=== PATIENT | male | born 1945 | race Caucasian/White ===

== ENCOUNTER 2020-10-16 14:51 | Inpatient (IN) | payer BC ==
[~2020-10-16] VITALS: Ht 154.9 cm; Wt 109.6 kg
--- NOTE | ~2020-10-16 | EMS ---
[address] [address] EMS Patient Care Report Name: PIA LOZADA Room #: 362-P ADM IN M.R.#: [id number] Admission: 10/16/20 Attend Phys: Mateusz Bah MD Discharge: Date of : 43 Report #: [id number] THIS REPORT FOR: //name// Report Transmitted: 10/17/2020 15:10 EMS Care Summary [place], [place]/[facility] Incident [id number] @ 10/16/2020 14:14 Incident Location [id number] [place] [address] Patient PIA LOZADA Male, 75 Years 1945 Patient Address [id number] [place] [id number] Patient History Asthma,Diabetes,Hypertension (HTN),Diverticulitis,Pneumonia,Chronic Respiratory Failure,Myocardial Infarction (CO),Novel Coronavirus (COVID-19), Patient Allergies No known allergies, Patient Medications Aspirin, Atorvastatin, Humalog, Lantus, Furosemide, Proair, Carvedilol, Losartan, Chief Complaint CHEST PAIN Disposition Transported No Lights/Loiza Dispatch Reason Chest Pain (Non-Traumatic) Transported To [facility] Narrative SCENE: ON ARRIVAL PT FOUND LYING IN BED IN ROOM AT ADDRESS PROVIDED. PT IS [address] [address] EMS Patient Care Report Name: PIA LOZADA Room #: 362-P ADM IN [facility]#: [id number] Admission: 10/16/20 Attend Phys: Matesuz Bah MD Discharge: Date of : 43 Report #: [id number] AWAKE AND ALERT WITH A GCS OF 15. STAFF ON SCENE REPORTS PT IS C/O CHEST PAIN THAT BEGAN APPROXIMATELY 30 MINUTES AGO. PT REPORTS HE WAS LYING IN BED WHEN THE PAIN STARTED. PT IS UNABLE TO DESCRIBE THE PAIN OR RATE THE INTENSITY. PT SLID TO EMS STRETCHER. PT IS ON 4LPM VIA NC AND REMAINED ON THIS THROUGHOUT TRANSPORT. AMBULANCE: PT INITIALLY COULD NOT REMEMBER WHICH HOSPITAL HE WAS SEEN AT FOR HIS CO, NOR CAN HE REMEMBER THE TREATMENT THEY PROVIDED. PT UPPER EXTREMITIES HAVE MULTIPLE AREAS OF BRUISING, AT DIFFERING LEVELS OF HEALING, APPEARING TO BE FROM ATTEMPTEED IV STARTS. EMS UNABLE TO IDENTIFY SUITABLE IV SITE. 12 LEAD OBTAINED SHOWING DEPRESSION IN SOME LEADS, BUT NEGATIVE FOR ST ELEVATION. EMS ADMINISTERED 162MG (2 BABY ASPIRIN), AND PT STATES HE CANNOT STAND THE TASTE, AND REFUSES THE ADDITIONAL TWO ASPIRIN. VITALS MONITORED. NO OTHER CHANGES. Initial Vitals @14:39P: 87,R: 18,BP: 110/66,GCS: 15,SpO2: 94,Revised Trauma: 12, @14:31P: 85,R: 18,Pain: 2/10,GCS: 15, @14:28P: 89,R: 18,BP: 106/68,Pain: 2/10,GCS: 15,Revised Trauma: 12, @14:23P: 84,R: 18,GCS: 15, Assessments @14:23MENTAL:No Abnormalities,SKIN:No Abnormalities,HEENT:Head/Face: No Abnormalities,Eyes: No Abnormalities,Neck/Airway: No Abnormalities,LUNG SOUNDS:General: No Abnormalities,Left Upper: No Abnormalities,Right Upper: No Abnormalities,Left Lower: No Abnormalities,Right Lower: No Abnormalities,ABDOMEN:General: No Abnormalities,Left Upper: No Abnormalities,Right Upper: No Abnormalities,Left Lower: No Abnormalities,Right Lower: No Abnormalities,PELVIS//GI:No Abnormalities,EXTREMITIES:Left Arm: No Abnormalities,Right Arm: No Abnormalities,Left Leg: No Abnormalities,Right Leg: No Abnormalities,PULSE:NEURO:No Abnormalities,@14:44MENTAL:No Abnormalities,SKIN:No Abnormalities,HEENT:Head/Face: No Abnormalities,Eyes: No Abnormalities,Neck/Airway: No Abnormalities,LUNG SOUNDS:General: No Abnormalities,Left Upper: No Abnormalities,Right Upper: No Abnormalities,Left Lower: No Abnormalities,Right Lower: No Abnormalities,ABDOMEN:General: No Abnormalities,Left Upper: No Abnormalities,Right Upper: No Abnormalities,Left Lower: No Abnormalities,Right Lower: No Abnormalities,PELVIS//GI:No Abnormalities,EXTREMITIES:Left Arm: No Abnormalities,Right Arm: No Abnormalities,Left Leg: No Abnormalities,Right Leg: No Abnormalities,PULSE:NEURO:No Abnormalities, Impression Chest Pain / Discomfort Procedures @14:23ALS AssessmentResponse: UnchangedSucceeded@14:3112-Lead ECGResponse: UnchangedSucceeded@14:293-Lead ECGResponse: UnchangedSucceeded@14:34Beryl [address] [address] EMS Patient Care Report Name: PIA LOZADA Room #: 362-P [facility] IN [facility]#: [id number] Admission: 10/16/20 Attend Phys: Mateusz Bah MD Discharge: Date of : 43 Report #: [id number] 0cc (18 ga) Site: Antecubital-LeftResponse: UnchangedFailed@14:38Aspirin - 162 Milligrams (mg) - OralResponse: Unchanged@14:27StretcherResponse: Unchanged@PTAOxygen FlowRate: 4 Device: Nasal Cannula (NC) Response: UnchangedSucceeded Timeline DEPUTY SHERIFF GENERALIST,Oxygen FlowRate: 4 Device: Nasal Cannula (NC) Response: UnchangedSucceeded, 14:12,Call Received 14:12,Dispatch Notified 14:14,Dispatched 14:15,En Route 14:19,On Scene 14:22,At Patient 14:23,BP: / M,PULSE: 84,RR: 18 R,SPO2: Ox,ETCO2: ,BG: ,PAIN: ,GCS: 15, 14:23,ALS Assessment,Response: UnchangedSucceeded, 14:27,Stretcher,Response: Unchanged 14:28,BP: 106/68 M,PULSE: 89,RR: 18 R,SPO2: Ox,ETCO2: ,BG: ,PAIN: 2,GCS: 15, 14:29,3-Lead ECG,Response: UnchangedSucceeded, 14:31,12-Lead ECG,Response: UnchangedSucceeded, 14:31,BP: / M,PULSE: 85,RR: 18 R,SPO2: Ox,ETCO2: ,BG: ,PAIN: 2,GCS: 15, 14:34,Depart Scene 14:34,Saline Lock 0cc 18 ga Site: Antecubital-Left,Response: UnchangedFailed, 14:38,Aspirin - 162 Milligrams (mg) - Oral,Response: Unchanged 14:39,BP: 110/66 M,PULSE: 87,RR: 18 R,SPO2: 94 Ox,ETCO2: ,BG: ,PAIN: ,GCS: 15, 14:45,At Destination 15:06,Call Closed Disclaimer v1.1 Copyright 2020 [employer] This EMS Care Summary contains data elements from the applicable legal record (which may be displayed differently). It is designed to provide pertinent information for the following purposes: continuity of care, clinical quality, and state data reporting. The complete legal record is available to ED staff and administrators of the receiving hospital in [employer] Patient Tracker. All data is provided "as is."
--- NOTE | ~2020-10-16 | HC ---
[facility] [place] [address] CONSULTATION Name: PIA LOZADA Room #: 362-P ADM IN M.R.#: [id number] Admission: 10/16/20 Attend Phys: Mateusz Bah MD Discharge: Date of : 43 Report #: [id number] THIS REPORT FOR: cc: Shawn Truong MD, Srinath MD Al-Absi,Mary Vargas MD ~ REASON FOR CONSULTATION: Elevated creatinine. REASON FOR THE PRESENTATION: Chest pain. HISTORY OF PRESENT ILLNESS: This is a 75-year-old with well-documented chronic kidney disease. He was recently at [facility] and being treated as a non-STEMI. He presented there from [facility]. Creatinine has been in the 1.4-1.6. He was discovered to have COVID pneumonia and was discharged to an LTAC facility. The patient presented with worsening chest pain and was found to have a creatinine of 2.4 on arrival that improved down to 1.6 as of this morning. I was consulted to manage his acute kidney injury. The patient denies any urological symptoms. He carries a diagnosis of many comorbid conditions including and not limited to recent COVID-19, chronic kidney disease with a baseline creatinine of around 1.6. ALLERGIES: None. PAST MEDICAL HISTORY. 1. Coronary artery disease. 2. Diabetes mellitus. 3. Cardiomyopathy. 4. Recent COVID pneumonitis. 5. Hypertension. SOCIAL HISTORY: Denies drug or alcohol abuse. REVIEW OF SYSTEMS: GENERAL: Significant for weakness. CARDIOVASCULAR: Chest pain. PULMONARY: Significant for shortness of breath. GASTROINTESTINAL: No nausea or vomiting. GENITOURINARY: No frequency, no urgency. PHYSICAL EXAMINATION: VITAL SIGNS: Temperature 36.3, blood pressure was marginal at 98/68. HEAD AND NECK: No jugular venous distention. CHEST: No crackles. CARDIOVASCULAR: No rub. ABDOMEN: Soft, nontender. [facility] [address] [place] [address] CONSULTATION Name: PIA LOZADA Room #: 362-P [facility] IN [facility]#: [id number] Admission: 10/16/20 Attend Phys: Mateusz Bha MD Discharge: Date of : 43 Report #: [id number] LOWER EXTREMITIES: There is no evidence of edema. LABORATORY DATA: Reviewed. Sodium is 135, chloride is 106, carbon dioxide is 20, BUN is 86, and creatinine is 1.6. IMPRESSION AND PLAN: 1. Acute kidney injury due to hypotension. 2. Recent COVID pneumonitis. 3. Chronic kidney disease with a baseline creatinine of around 1.6. The patient's creatinine has improved with the values coming down from 2.4 to 1.6, which is around his baseline. Continue with IV fluid. 4. Avoid hypotension. 5. No further renal recommendations. I am available for any questions. I will sign off. By: 0550 0 Mary Gastelum MD /nt
[2020-10-16 14:54] VITALS: BP 114/59
[2020-10-16 15:18] LABS: ABSOLUTE NEUTROPHILS 15.3 thou/uL (1.4-8.2); BASOPHILS 0.5 % (0.0-2.0); EOSINOPHILS 0.5 % (0.0-3.0); HEMATOCRIT 41.4 % (42.0-52.0); HEMOGLOBIN 13.8 gm/dL (14.0-18.0); LYMPHOCYTES 5.1 % (24.0-44.0); MCH 28.8 pg (26.0-34.0); MCHC 33.4 g/dL (28.0-37.0); MCV 86.2 fL (80.0-100.0); MONOCYTES 5.3 % (1.0-8.0); PLATELET COUNT 243 thou/uL (150-400); POLYS 88.6 % (36.0-66.0); RBC 4.81 mil/uL (4.50-6.00); RDW 14.3 % (10.5-14.5); WBC 17.3 thou/uL (4.0-11.0)
[2020-10-16 15:25] LABS: CALCIUM 8.5 mg/dL (8.5-10.1); CREATININE 2.4 mg/dL (0.7-1.3); POTASSIUM 4.2 mmol/L (3.5-5.1)
[2020-10-16 15:35] LABS: ALBUMIN 2.7 g/dL (3.4-5.0); TOTAL BILIRUBIN 1.7 mg/dL (0.2-1.0); TOTAL PROTEIN 7.3 g/dL (6.4-8.2); TROPONIN-I 0.1 ng/mL (<0.06)
--- NOTE | 2020-10-16 16:04 | EKG ---
[address] [employer] [place] [address] ELECTROCARDIOGRAM REPORT Name: PIA LOZADA Room #: REG [facility]#: [id number] Admission: 10/16/20 Attend Phys: Discharge: Date of : 41 Report #: [id number] [facility] ED Test Date: 2020-10-16 Test Time: 14:52:26 Pat Name: PIA LOZADA Department: Room: Gender: M [employer]: : 1945 Requested By: Toby Mooney Order Number: [id number] MD: Bigg Shine Measurements Intervals [place] Rate: 86 P: 50 MS: 219 QRS: 63 QRSD: 107 T: 63 QT: 376 QTc: 450 Interpretive Statements Sinus rhythm Borderline prolonged MS interval Consider left atrial enlargement Inferior infarct, old No previous ECG available for comparison Electronically Signed On 10-16-2020 16:04:19 CDT by Bigg Shine [email or web address] <ELECTRONICALLY SIGNED> By: Bigg Shine MD, [facility] 10/16/20 1604 1452 1452 Bigg Shine MD, FACC /EPI
[2020-10-16 17:00] LABS: APTT 27.3 Seconds (24.5-32.8); PROTIME 10.9 Seconds (10.5-12.1)
[2020-10-16 18:57] VITALS: BP 149/107
[2020-10-16 20:28] VITALS: BP 111/76
[2020-10-16 20:59] VITALS: BP 132/69
[2020-10-16 21:14] VITALS: BP 132/69
[2020-10-17] VITALS (7 sets, daily range): BP systolic 100–130; BP diastolic 59–75
[2020-10-17 00:54] LABS: ABSOLUTE NEUTROPHILS 15.6 thou/uL (1.4-8.2); BASOPHILS 0.2 % (0.0-2.0); EOSINOPHILS 0.5 % (0.0-3.0); HEMATOCRIT 39.2 % (42.0-52.0); LYMPHOCYTES 3.9 % (24.0-44.0); MCH 28.9 pg (26.0-34.0); MCHC 33.2 g/dL (28.0-37.0); MCV 87.1 fL (80.0-100.0); MONOCYTES 3.8 % (1.0-8.0); PLATELET COUNT 212 thou/uL (150-400); POLYS 91.6 % (36.0-66.0); RDW 14.7 % (10.5-14.5)
--- NOTE | 2020-10-17 01:14 | NUR ---
ADMIT FROM ED. PT ALERT TO SELF AND SITUATION. PT STATED HE USUALLY GOES TO [facility] THAT HE WAS HERE FOR AFIBB. PALE SKIN TONE, COARSE LUNGS O2 PER NC 4L. BLE EDEMA, PROTRUDING ABD. PT RESTLESS AND IMPULSIVE IN BED. BED ALARM ON. INCONTINENT OF URINE. HEPARIN DRIP STARTED IN ED. IVF INTACT. PT PROVIDED SNACK. PT TALKED WITH HIS DAUGHTER. HISTORY OBTAINED FROM RECORDS FROM [facility]. PRESENTING PER ED REPORT COVID POSITIVE (09/15) AND CHEST PAIN WITH HISTORY OF RECENT VA. NO C/O CHEST PAIN.
[2020-10-17 01:22] LABS: CALCIUM 7.9 mg/dL (8.5-10.1); CREATININE 1.9 mg/dL (0.7-1.3); POTASSIUM 4.2 mmol/L (3.5-5.1); TROPONIN-I 0.12 ng/mL (<0.06)
[2020-10-17] MEDS ORDERED: CHILDREN'S ASPI81 M1 PO (01:45)
[2020-10-17] MEDS ORDERED: LIPITOR80 MG PO (01:45)
[2020-10-17] MEDS ORDERED: BUDESONIDE-FO10.2 G1 INH (01:46)
[2020-10-17] MEDS ORDERED: CARVEDILOL12.5 MG PO (01:46)
[2020-10-17] MEDS ORDERED: FUROSEMIDE 40 M40 MG PO (01:47)
[2020-10-17] MEDS ORDERED: LANTUS SUBQ (01:47)
[2020-10-17] MEDS ORDERED: COZAAR100 MG PO (01:48)
[2020-10-17] MEDS ORDERED: MIRALAX119 GM PO (01:49)
[2020-10-17] MEDS ORDERED: PROAIR HFA8.5 GM INH (01:51)
--- NOTE | 2020-10-17 02:21 | NUR ---
PT VERBALIZED BEING BORED AND NOT ABLE TO SLEEP. PT STATED HE NORMALLY BREATHS OUT OF HIS MOUTH AND MAKES OBSERVED NOISES. PT ENCOURAGED TO BREATH IN THROUGH HIS NOSE AND OUT OF HIS MOUTH. PROVIDER NOTIFIED OF BEHAVIORS. PRNS ORDERED. ONCE PT WAS TOLD HE WAS RECEIVING MEDICATION FOR SLEEP AND ANXIETY, PT RELAXED IN BED STOPPED BREATHING AND GRUNTING THROUGH HIS MOUTH AND STARTED TO WATCH TV.
--- NOTE | 2020-10-17 03:18 | NUR ---
INCREASE IN RR, ACCESSORY MUSCLE USE, INCREASE IN RESTLESSNESS. PT NOT ABLE TO SETTLE RR. CATALOGUE COMPILER AND PROVIDER CALLED TO ASSIST AND ASSESS PT. NEW ORDERS OBTAINED.
[2020-10-17 03:37] LABS: BE(vivo) -4.6 mmol/L (-2 to +3); HCO3 16.5 mmol/L (22.0-26.0); PO2 83.6 mmHg (80.0-100.0); pH 7.498 (7.360-7.450); sO2 97.2 % (92.0-98.0)
[2020-10-17 03:38] LABS: PCO2 21.7 mmHg (35.0-45.0)
--- NOTE | 2020-10-17 04:36 | NUR ---
PT HAD LARGE DARK BLACK STOOL LIQUID. SAMPLE OBTAINED. PROVIDER UPDATED.
[2020-10-17 09:15] LABS: CHOLESTEROL 104 mg/dL (<200); HDL CHOLESTEROL 36 mg/dL (>40); LDL CHOLESTEROL 49 mg/dL (<100); TC:HDL 2.9 Ratio (Not establshd); TRIGLYCERIDE 97 mg/dL (<150); VLDL 19 mg/dL (<40)
--- NOTE | 2020-10-17 10:37 | 2DMMODE ---
[facility] [place] [address] 2 D/M-MODE ECHOCARDIOGRAM Name: PIA LOZADA Room #: 362-P ADM IN M.R.#: [id number] Admission: 10/16/20 Attend Phys: Mateusz Bah MD Discharge: Date of : 43 Report #: [id number] THIS REPORT FOR: cc: Shawn Truong MD, Srinath MD Park, Jin S. MD ~ APPROVED REPORT Study performed: 10/17/2020 09:29:28 EXAM: Limited 2D, Doppler, and color-flow Echocardiogram Patient Location: Bedside Room #: 362 Status: routine BSA: 2.26 HR: 114 bpm BP: 107/59 mmHg Rhythm: Tachycardia Other Information Study Quality: Poor/limited window availability Technically limited study due to patient in distress, unable to position. Sitting up in bed. Indications Chest pain/NSTEMI. Patient is COVID 19 + Hx: OR, CAD, cardiomyopathy, HTN, HLP, DM. 2D Dimensions LVOT Diam: 22.26 (18-24mm) Aortic Valve AoV Peak Govind.: 1.83 m/s AO Peak Gr.: 13.42 mmHg LVOT Max P.29 mmHg LVOT Max V: 0.91 m/s BRIAN Vmax: 1.93 cm2 Tricuspid Valve TR Peak Govind.: 2.01 m/s TR Peak Gr.: 16.15 mmHg Left Ventricle The left ventricle is normal size. Technically difficult study. Grossly normal LV function, unable to rule out segmental wall motion [facility] [address] [place] [address] 2 D/M-MODE ECHOCARDIOGRAM Name: PIA LOZADA Room #: 362-P ADM IN .R.#: [id number] Admission: 10/16/20 Attend Phys: Mateusz Bah MD Discharge: Date of : 43 Report #: [id number] abnormalities. LVEF is 55-60%. This study is not technically sufficient to allow evaluation of the LV diastolic function due to tachycardia. Right Ventricle The right ventricle is normal size. The right ventricular systolic function is normal. Atria Both atria appear normal in size. Aortic Valve The aortic valve is not well visualized. Leaflets appear calcified. No aortic regurgitation is present. There is no aortic valvular stenosis. Mitral Valve The mitral valve is normal in structure. Mild mitral annular calcification. There is no mitral valve regurgitation noted. No evidence of mitral valve stenosis. Tricuspid Valve The tricuspid valve is normal in structure. Trace tricuspid regurgitation. Estimated PAP is 16mmHg plus the RAP. Pulmonic Valve Pulmonic valve is not well visualized. Great Vessels Ascending aorta is not well visualized. IVC is not well visualized. Pericardium There is no pericardial effusion. <Conclusion> The left ventricle is normal size. Technically difficult study. Grossly normal LV function, unable to rule out segmental wall motion abnormalities. The right ventricle is normal size. The aortic valve is not well visualized. Leaflets appear calcified. [facility] [address] [place] [address] 2 D/M-MODE ECHOCARDIOGRAM Name: PIA LOZADA Room #: 362-P ADM IN .R.#: [id number] Admission: 10/16/20 Attend Phys: Mateusz Bah MD Discharge: Date of : 43 Report #: [id number] There is no mitral valve regurgitation noted. Trace tricuspid regurgitation. <ELECTRONICALLY SIGNED> By: German Mccarty MD 10/17/206 35 35 German Mccarty MD /INF
--- NOTE | 2020-10-17 13:55 | NUR ---
INITIAL ASSESSMENT: Received consult. SADIE reviewed chart and spoke with nursing and attending physician. Pt was admitted from [facility] due to Chest pain. Pt placed in Enhanced Isolation due to COVID. Pt had positive test on 10/16. Per chart, pt had first positive COVID test on 10/05 at [facility]. Pt was transferred to [facility] and then discharged to [facility] SNF on 10/13. Pt is afebrile and on 4L of O2. ID consulted. Pt started on IV abx. Cardiology and Nephrology also consulted. Pt to have echo and possible cardiac cath per ID clearance. SADIE placed call to pt's room. No answer. SADIE left voice message for pt's dtrPat. Requested call back to obtain info for assessment and discuss discharge plan. SADIE spoke with Vera at [facility], who states pt is currently in their skilled unit, and will need a new insurance auth for pt to return as skilled. Therapy evals have been ordered. SW to fax info to [facility] for review once pt/family confirm discharge plan. SADIE is following to assist as needed with discharge planning.
[2020-10-17 14:05] LABS: URINE BILIRUBIN NEGATIVE (Negative); URINE BLOOD 1+ (Negative); URINE CLARITY CLEAR; URINE COLOR YELLOW; URINE GLUCOSE-RANDOM* NEGATIVE (Negative); URINE KETONES NEGATIVE (Negative); URINE LEUKOCYTES-REFLEX NEGATIVE (Negative); URINE NITRITE-REFLEX NEGATIVE (Negative); URINE PROTEIN (DIPSTICK) NEGATIVE (Negative); URINE UROBILINOGEN 0.2 E.U./dl (0.2-1.0)
[2020-10-17 14:18] LABS: BACTERIA-REFLEX 1-9 Few /HPF (None Seen); CASTS None Seen /LPF (None Seen); CRYSTALS None Seen /LPF (None Seen); SQUAMOUS None Seen /LPF (0-3); URINE RBC 3-10 Few /HPF (NONE SEEN); URINE WBC-REFLEX None Seen /HPF (0-5)
--- NOTE | 2020-10-17 16:36 | NUR ---
RN ASSUMED PT'S CARE AT 0700AM , PT IS A&OX2 ( PERSON AND TIME), PT IS CONFUSED AT TIME, PT CAN FOLLOW COMMANDS, PT IS ON O2 4L/MIN/NC.PT'S VS AND O2SAT ARE STABLE, PT HAS STAERTED IV ABX AND TREATED COVID MEDICATIOMS, PT HAS STRATED IV HEPARIN DRIP , PT'S HEPARIN IS RUNNING AT 10UNITS/KG/HR PER PROTOCOL BY THIS TIME, PT WILL HAVE LAB PTT AT 2100PM, RN HAS CALLED HOSPITAL DR TO REPORT POSITIVE OCCULT BLOOD IN STOOL, PT'S HGB ARE STABLE BY THIS TIME, WE WILL KEEP EYES ON PT, PT WILL HAVE CBC /HGB TOMORROW.
[2020-10-18] VITALS (12 sets, daily range): BP systolic 90–115; BP diastolic 48–79
[2020-10-18 00:06] LABS: GLYCOHEMOGLOBIN (HGB A1C) 7.8 % (4.8-5.6)
[2020-10-18 03:19] LABS: ABSOLUTE NEUTROPHILS 11.2 thou/uL (1.4-8.2); BASOPHILS 0.1 % (0.0-2.0); HEMATOCRIT 28.4 % (42.0-52.0); LYMPHOCYTES 5.7 % (24.0-44.0); MCH 28.9 pg (26.0-34.0); MCHC 33.7 g/dL (28.0-37.0); MONOCYTES 2.2 % (1.0-8.0); PLATELET COUNT 182 thou/uL (150-400); RDW 14.7 % (10.5-14.5); WBC 12.2 thou/uL (4.0-11.0)
[2020-10-18 03:29] LABS: HEMOGLOBIN 9.6 gm/dL (14.0-18.0)
[2020-10-18 03:39] LABS: ALBUMIN 1.8 g/dL (3.4-5.0); CALCIUM 7.1 mg/dL (8.5-10.1); CREATININE 1.6 mg/dL (0.7-1.3); PHOSPHORUS 2.9 mg/dL (2.5-4.9); POTASSIUM 4.2 mmol/L (3.5-5.1)
--- NOTE | 2020-10-18 06:31 | NUR ---
PT IS ALERT AND ASKING WHEN HE IS GOING TO LEAVE. VSS OVERNIGHT. ULTRASOUND COMPLETED WITHOUT ANY DVT'S. PHYSICIAN NOTE STATED THAT IF ULTRASOUND NEGATIVE, A CTA CAN BE DONE IF KIDNEY FUNCTION WILL ALLOW. PT BEDREST BUT CAN VOID USING THE URINAL. FOLLOWING POC WITH IVF. HgB TRENDING LOWER.
[2020-10-18 09:47] LABS: HEMATOCRIT 27.7 % (42.0-52.0); HEMOGLOBIN 9.1 gm/dL (14.0-18.0)
--- NOTE | 2020-10-18 10:58 | NUR ---
ASSUMED CARE OF PT THIS AM. PT IS A&O X4. ON 4L NC, NO DISTRESS NOTED. DENIES ANY CHEST PAIN. PT WILL BE GOING FOR CARDIAC CATH TODAY, HEPARIN DRIP STOPPED VIA DR. PT REFUSED ALL VIT C & 1 PILL OF CHOLECALCIFEROL, STATED "TOO MANY PILLS". PT EDUCATED ABOUT NEED TO TAKE THEM. USES URINAL. FALL PRECAUTIONS IN PLACE.
--- NOTE | 2020-10-18 12:00 | HC ---
[facility] [place] [address] CONSULTATION Name: PIA LOZADA Room #: 362-P ADM IN M.R.#: [id number] Admission: 10/16/20 Attend Phys: Mateusz Bah MD Discharge: Date of : 43 Report #: [id number] THIS REPORT FOR: cc: Shawn Truong MD, Srinath MD Barry,Fermín Giraldo MD ~ DATE OF SERVICE: 10/17/2020 INFECTIOUS DISEASE CONSULTATION ATTENDING PHYSICIAN: Dr. Bah. REASON FOR EVALUATION: COVID-19 infection, complicated by pneumonitis, respiratory failure. HISTORY OF PRESENT ILLNESS: Chart reviewed. The patient examined. This is a 75-year-old gentleman with known history of diabetes mellitus complicated by vasculopathy, previous diagnosis of acute myocardial infarction as well as COVID-19 infection, had been hospitalized for upwards of a week, underwent combination therapy with antivirals corticosteroids, apparently was discharged, he believes on supplemental oxygen and subsequently developed chest pain, was admitted to [facility], currently requiring supplemental oxygen at 4 liters per nasal cannula. Initial white count was elevated at 17.3, mildly elevated D-dimer, creatinine 2.4. EKG suggests inferior infarct, felt not to be acute. Chest x-ray, no evidence of significant infiltrates, mild elevation of lactic acid of 2.1. Coronavirus testing was still positive. Review of the records apparently was diagnosed on 09/27. Troponin slightly elevated at 0.1. ABGs: pH 7.498, pCO2 of 21.7, pO2 of 83.6 on 6 liters. Blood cultures sterile thus far. Echo showed grossly normal LV function. He is scheduled to undergo cardiac catheterization when cleared. ALLERGIES: None known. CURRENT MEDICATIONS: Include metoprolol, atorvastatin, insulin glargine, aspirin, cholecalciferol, thiamine, zinc sulfate, ascorbic acid, pantoprazole, budesonide, melatonin, nitroglycerin as needed, heparin. PAST MEDICAL HISTORY: As described above, diabetes mellitus type 2, complicated by vasculopathy, has recent acute myocardial infarction, atrial fibrillation, underlying COPD, anxiety, depression, some dementia. SOCIAL HISTORY: Former smoker, occasional ethanol. No illicit drug use. FAMILY HISTORY: Noncontributory. REVIEW OF SYSTEMS: Otherwise, somewhat limited due to his mild encephalopathy. [address] [address] CONSULTATION Name: PIA LOZADA Room #: [address] [place] [address] IN .R.#: [id number] Admission: 10/16/20 Attend Phys: Mateusz Bah MD Discharge: Date of : 43 Report #: [id number] PHYSICAL EXAMINATION: GENERAL: He is somewhat lethargic, slow to respond moderate distress, appears somewhat chronically ill and undernourished. VITAL SIGNS: Temperature 99, pulse 101, respirations 24, blood pressure 102/61. SKIN: Warm, dry, no rashes. HEENT: Normocephalic. Extraocular muscles intact. Nasal cannula in place with 4 liters. NECK: Supple. LUNGS: ____ scattered coarse breath sounds. HEART: Irregular, I do not appreciate any murmur. ABDOMEN: Mildly distended, somewhat firm, nontender. EXTREMITIES: There are no peritoneal signs. GENITOURINARY AND RECTAL: Deferred. LABORATORY DATA: Echo as described above. Blood cultures sterile thus far. Chest x-ray from this morning showed mild cardiomegaly with slight hyperinflation and basilar scarring, no acute infiltrate. Most recent ABG: pH 7.498, pCO2 of 21.7, pO2 of 83.6 on 6 liters. Electrolytes: Sodium 134, potassium 4.2, chloride 102, bicarbonate 24, anion gap of 8, BUN and creatinine 87 and 1.9. Estimated GFR of 35. CBC: White count this morning 17.0, H and H 13.0 and 39.2, platelets of 212. Lactic acid 1.2. V/Q scan showed indeterminate multifocal segmental perfusion defects. TSH is 0.716. Positive coronavirus ____ testing. ASSESSMENT AND PLAN: COVID-19 infection diagnosed with recent past, complicated by pneumonitis and respiratory failure. He does have underlying chronic obstructive pulmonary disease and recent acute cardiac event, all which can contribute to his breathing difficulties, chest pain. It is not clear that he has a focal site of pyogenic infection and difficult to interpret airspace disease with underlying chronic obstructive pulmonary disease, this reason we will continue empiric therapy. We will check urinalysis as well. Follow up on the blood cultures, other incentive spirometry. Continue to monitor expectantly. This is reasonable to proceed with cardiac catheterization, it has been 21 days since his diagnosis. The period of quarantine should have been adequate. <ELECTRONICALLY SIGNED> By: Fermín Hale MD 10/18/20 1200 1118 57 Fermín Hale MD /nt
--- NOTE | 2020-10-18 13:28 | NUR ---
PT TAKEN DOWN FOR CATH.
--- NOTE | 2020-10-18 13:51 | NUR ---
SADIE reviewed chart and spoke with nursing and attending physician. Pt remains in Enhanced Isolation due to COVID. Pt is afebrile and on 4L of O2. Pt is on IV abx and IV steroids. Pt currently off the unit having cardiac cath. SADIE received call back from pt's dtr, Pat. Introduced role of SW to Pat. Pat states that she was unaware that pt was moved from [facility] to [facility]. Pt's dtr states that prior to admission to the hospital, he was completely independent. Pt normally lives at home alone and is independent with ADLs. No use of DME. Pt was working part-time at [employer] prior to the COVID pandemic. [employer] required employees to wear a mask. Pt refused to wear a mask and stopped going to work. Pt's dtr is unsure if he has a PCP, as she is not really involved in his life. Pt has isolated himself from his family and friends. Pt's dtr is agreeable with being updated and assisting with pt's care as needed. Pat does live in [place]. SADIE faxed clinical/therapy updates to [facility] for review. SADIE updated [facility] post-acute liaison. Will need insurance auth for pt to return to [facility] as skilled. SADIE is following to assist as needed with discharge planning.
--- NOTE | 2020-10-18 15:47 | CATHLAB ---
[facility] [place] [address] INVASIVE PROCEDURE REPORT Name: PIA LOZADA Parvin Room #: 362-P ADM IN M.R.#: [id number] Admission: 10/16/20 Attend Phys: Mateusz Bah MD Discharge: Date of : 41 Report #: [id number] THIS REPORT FOR: cc: Shawn Truong MD, Srinath MD Park, Jin S. MD ~ APPROVED REPORT Study performed: 10/18/2020 13:15:59 Patient Details Patient Status: In-Patient Room #: 362 The patient is a 75 year-old male Event Personnel Germna Mccarty Product Delivery Specialist, Abraham Quinn RN RN, Joanie Domínguez RTR, DRY TRANSFER WORKER Monitor, Juany Chavarria RTR Scrub Procedures Performed Art Access - R femoral artery* Left Heart Cath w/or w/o Coronaries [id number] [facility] [address] Initial Mod Sed Same Phys/QHP Gr5y 093325 Hemostasis with Manual pressure 82494 Mod Sed Same Phys/QHP Ea 544693 Indication Non-STEMI , Dyspnea, Chest pain Risk Factors Chronic Lung DiseaseHypercholesterolemia, Coronary Artery DiseaseHypertension, Diabetes Previous Procedures/Diagnoses Previous NH Procedure Narrative The Right Groin^ was infiltrated with 1% Lidocaine subcutaneous anesthesia. A PINNACLE 4FR Sheath #[id number] sheath was inserted into the RFA^. Coronary angiography was performed using coronary diagnostic catheters. The right coronary system was accessed and visualized with a JR4 catheter. The left coronary system was accessed and visualized with a JL4 catheter. The left ventricle was accessed and visualized with a JR4 catheter. Left ventricular/Aortic Valve gradient assessed via catheter pullback. Hemostasis was obtained with manual pressure following sheath removal without any complications. [facility] [address] [place] [address] INVASIVE PROCEDURE REPORT Name: PIA LOZADA Room #: 362-P [facility] [place] [facility]#: [id number] Admission: 10/16/20 Attend Phys: Mateusz Bah MD Discharge: Date of : 41 Report #: [id number] The patient tolerated the procedure well and there were no complications associated with the procedure. There was no hematoma. Intraoperative Conscious Sedation Sedation start time: 14:27 Case end Time: 14:57 Fentanyl 50 mcg Versed 1 mg Fluoro Time: 2.47 minutes Dose: DAP 4611.80 cGycm2 620 mGy Contrast Type and Amount: Visipaque 65 ml Coronary Angiography The patient's coronary anatomy is right dominant. Diagnostic Cath Left Main Left main artery is a large-caliber vessel, with mild disease distally. LAD The LAD is a moderate-sized caliber vessel, traversing the anterior wall and wraps around the apex. There is mild calcification and mild plaquing in the proximal and mid segments. Diagonal 1 This is a moderate-sized caliber vessel with a early takeoff from the LAD. This vessel divides into 2 branches at its midpoint. This vessel is patent with no flow-limiting lesions. Diagonal 2 This is a small to moderate-sized caliber vessel, with mild disease proximally. 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 There appears to be faint collaterals to the distal segments. Right Coronary The RCA is a dominant vessel with a total occlusion in the midsegment. The distal branches are adequately filled via collateral circulation from the left coronary artery. Left Ventriculography Left Ventriculography was not performed. Ejection Fraction was 50% based off patient's Echocardiogram. An LVEDP was measured and there is no gradient across the outflow tract. Hemodynamics The aortic pressure is 105/59 mmHg with a mean of 78 mmHg. The left ventricular pressure is 130/4 mmHg with a mean of mmHg. The left ventricular end diastolic pressure is 10 mmHg. Conclusion [facility] [address] [place] [address] INVASIVE PROCEDURE REPORT Name: PIA LOZADA Room #: [address] [place] [address] [facility]#: [id number] Admission: 10/16/20 Attend Phys: Mateusz Bah MD Discharge: Date of : 41 Report #: [id number] 1. The LAD and first diagonal artery are patent vessels with mild disease. 2. 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 The distal branches are adequately filled via collateral circulation. 3. 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 There are faint collaterals to the distal branches. 4. Borderline lownormal LV systolic function. 5. Recommend guideline directed medical therapy. <ELECTRONICALLY SIGNED> By: German Mccarty MD 10/18/20 1547 1547 1547 German Mccarty MD /INF
[2020-10-19 02:11] LABS: HEMATOCRIT 25.8 % (42.0-52.0); HEMOGLOBIN 8.5 gm/dL (14.0-18.0); MCH 28.8 pg (26.0-34.0); MCHC 33.1 g/dL (28.0-37.0); MCV 86.9 fL (80.0-100.0); RBC 2.97 mil/uL (4.50-6.00); RDW 14.6 % (10.5-14.5); WBC 17.3 thou/uL (4.0-11.0)
[2020-10-19 02:35] VITALS: BP 90/61
[2020-10-19 03:12] LABS: CALCIUM 6.9 mg/dL (8.5-10.1); CREATININE 1.4 mg/dL (0.7-1.3); POTASSIUM 4.6 mmol/L (3.5-5.1)
[2020-10-19 03:28] VITALS: BP 104/80
--- NOTE | 2020-10-19 03:53 | NUR ---
episode od chest pain at 0340. blood pressure 127/70, pulse 87, o2 sat 98 on 4 liters, chest pain a 8/10. then within 10 minutes pain decreased to a 3/10. continues to relax and feels slightly better. he thinks it was the ice cream
--- NOTE | 2020-10-19 07:54 | NUR ---
PT HAD COMPLAINTS OF CHEST PAIN X2. STAT EKG SHOWS PVC AND SR. PT DID NOT WANT ANY NITRO, BUT FINALLY ACCEPTED ONE DOSE. PT VOIDS VIA URINAL. CATH SITE C/D/I. FOLLOW POC WITH IVF AND IVPB. ISOLATION AND FALL PRECAUTIONS IN PLACE.
--- NOTE | 2020-10-19 08:05 | EKG ---
[place] [id number] [address] [facility] [place] [address] ELECTROCARDIOGRAM REPORT Name: PIA LOZADA Room #: 362-P ADM IN M.R.#: [id number] Admission: 10/16/20 Attend Phys: Mateusz Bah MD Discharge: Date of : 41 Report #: [id number] [facility] Test Date: 2020-10-19 Test Time: 07:21:35 Pat Name: PIA LOZADA Department: Room: 362 P Gender: M Larriman Helper: UNKNOWN : 1945 Requested By: German Mccarty Order Number: [id number] MD: Jeffrey Durbin Measurements Intervals [place] Rate: 75 P: 2 VT: 191 QRS: -3 QRSD: 106 T: 65 QT: 421 QTc: 471 Interpretive Statements Sinus rhythm Ventricular premature complex Inferior infarct, old Compared to ECG 10/16/2020 14:52:26 Ventricular premature complex(es) now present Electronically Signed On 10-19-2020 8:04:48 CDT by Jeffrey Durbin [email or web address] <ELECTRONICALLY SIGNED> By: Jeffrey Durbin MD, [facility] 10/19/20803 0 0 Jeffrey Durbin MD, [facility] /EPI
--- NOTE | 2020-10-19 10:27 | NUR ---
ASSUMED CARE OF PT THIS AM. PT IS A&O X 4. REPORTED CP THIS MORNING 08/24 "ACHING", REFER TO NIGHT NURSE NOTE. PT CURRENTLY DENIES ANY CHEST PAIN AND IS RESTING COMFORTABLY. THIS NURSE ASSISTED PT W/ SHOWER CAP AND NAIL CLEANING. CATH SITE IS CLEAN, DRY, AND INTACT. HGB CONTINUES TO DROP, PHYSICIAN AWARE. ENHANCED PRECAUTIONS IN PLACE. WILL CONTINUE TO MONITOR.
[2020-10-19 11:39] VITALS: BP 129/109; BP 130/62
--- NOTE | 2020-10-19 13:39 | NUR ---
SADIE reviewed chart and spoke with nursing and attending physician. Pt remains in Enhanced Isolation due to COVID. Pt had cardiac cath yesterday and is progressing towards goals for discharge. Pt is afebrile and on 4L of O2. PT is on IV abx and IV steroids. SADIE faxed updated clinical/therapy notes to [facility] for review. SADIE has had return call from [facility] post-acute liaison, Tamara, or the facility. SADIE contacted Alcira, another liaison, who requested info to be faxed to an alternate number. SADIE faxed info for review. Insurance auth might be needed for pt to return using his skilled benefit. Some [employer] policies have a waiver at this time due to COVID. SADIE is following to assist as needed with discharge planning.
[2020-10-19 15:38] VITALS: BP 109/52
[2020-10-19 16:50] LABS: HEMATOCRIT 28.1 % (42.0-52.0); HEMOGLOBIN 8.9 gm/dL (14.0-18.0); MCH 28.8 pg (26.0-34.0); MCHC 31.8 g/dL (28.0-37.0); MCV 90.5 fL (80.0-100.0); RBC 3.11 mil/uL (4.50-6.00); RDW 15.1 % (10.5-14.5); WBC 19.1 thou/uL (4.0-11.0)
[2020-10-19 21:16] VITALS: BP 115/61
[2020-10-20 05:34] VITALS: BP 105/54
--- NOTE | 2020-10-20 07:52 | NUR ---
VSS OVERNIGHT. PT UP IN CHAIR UNTIL 2300. PT IS CONFUSED AND STATES NO ONE IS CHECKING ON HIM WHILE HOURLY ROUNDING OCCURRING. PT VOIDS VIA URINAL. CHARGED PT ANDRIOD PHONE FOR HIM TO USE TO INCREASE HIS HAPPINESS. FOLLOWING POC WITH IVF/IVPB.
[2020-10-20 07:56] VITALS: BP 125/76
[2020-10-20 09:41] LABS: HEMATOCRIT 24.9 % (42.0-52.0); HEMOGLOBIN 8.2 gm/dL (14.0-18.0)
--- NOTE | 2020-10-20 11:07 | NUR ---
SADIE reviewed chart and spoke with nursing and attending physician. Pt remains in Enhances Isolation due to COVID. Pt is afebrile and on 3L of O2. Pt is on IV abx and IV steroids. Awaiting lab results at this time. Pt may be ready for discharge to SNF. SADIE contacted Lynnette at [facility] to follow up on referral. [facility] does not have any beds available. SADIE spoke with pt via phone to provide update. Pt is wanting to get to a facility closer to [place], [place], where he lives. SADIE discussed options in [place]. Pt is agreeable with referrals to [facility] and [facility]. SADIE spoke with Heather at [facility], who states they do accept COVID positive and recovered pts. SADIE faxed referral to [facility]. Insurance to be verified. SADIE updated Alcira with [facility], who states she will check with [facility]. SADIE updated pt via phone and attending physician. Chart copy requested. SADIE is following to assist as needed with discharge planning.
[2020-10-20 12:14] VITALS: BP 121/74
[2020-10-20 14:29] LABS: HEMATOCRIT 25.1 % (42.0-52.0); HEMOGLOBIN 8.1 gm/dL (14.0-18.0)
[2020-10-20] MEDS ORDERED: VITAMIN D325 MC2 PO (15:19)
[2020-10-20] MEDS ORDERED: VITAMIN B-1100 M2 PO (15:19)
[2020-10-20] MEDS ORDERED: ACEROLA C500 MG PO (15:19)
[2020-10-20] MEDS ORDERED: NITROGLYCERIN0.4 MG SUBLING (15:19)
[2020-10-20] MEDS ORDERED: METOPROLOL SUCC25 M1 PO (15:19)
[2020-10-20] MEDS ORDERED: IMDUR 30 MG TAB30 M1 PO (15:19)
[2020-10-20] MEDS ORDERED: ZINC SULFATE50 MG PO (15:19)
[2020-10-20] MEDS ORDERED: MELATONIN5 M1 PO (15:19)
[2020-10-20] MEDS ORDERED: PROTONIX 20 MG20 M1 PO (15:19)
[2020-10-20] MEDS ORDERED: CEFDINIR300 MG PO (15:31)
[2020-10-20] MEDS ORDERED: ASA81BEC PO (15:31)
[2020-10-20] MEDS ORDERED: PREDNISONE 20 M20 MG PO (15:37)
[2020-10-20 15:52] VITALS: BP 110/59
[2020-10-20] MEDS ORDERED: ELIQUIS2.5 MG PO (18:00)
--- NOTE | 2020-10-20 18:15 | NUR ---
RN ASSUMED PT'S CARE AT 0700-1800PM, PT IS A&OX4, PT IS ON O2 3L/MIN/NC, PT'S VS ARE STABLE, PT DENIES PAIN AND N/V, PT GETS UP TO CHAIR WITH ASSIST, RN RECEIVED ORDER TO DC PT TO SNF, RN HAS GIVING REPORT TO SNF, TRANSPORTATION REAL ESTATE SALESPERSON PT AT 1800PM, PT IS HAPPY WITH [facility] AT THIS HOSPITAL. PT HAS A GOOD DINNER .
--- NOTE | 2020-10-20 19:47 | NUR ---
RN HAS CALLED SNF CHARGE NURSE AND RN HAS FAXED DC NEW MEDICATION ORDER , SNF HAS RECEIVED NEW ORDER .
== END 2020-10-20 18:32 | DRG 280 ==
LOC: ER 14:51 → 3W 18:17 → EROBS 18:17 → 3W 20:41
PROVIDERS: Emergency Medicine; Hospitalist; Internal Medicine Cardiovascular Disease; Nurse Practitioner; Nurse Practitioner Family; Specialist; ADMIT Hospitalist; ATTEND Hospitalist
PROC: B215YZZ Fluoroscopy of Left Heart using Other Contrast (ICD-10-PCS; principal; 2020-10-18)
PROC: 4A023N7 Measurement of Cardiac Sampling and Pressure, Left Heart, Percutaneous Approach (ICD-10-PCS; principal; 2020-10-18)
PROC: B211YZZ Fluoroscopy of Multiple Coronary Arteries using Other Contrast (ICD-10-PCS; principal; 2020-10-18)
DX: I21.4 Non-ST elevation (NSTEMI) myocardial infarction (principal); J96.21 Acute and chronic respiratory failure with hypoxia; E43 Unspecified severe protein-calorie malnutrition; J96.01 Acute respiratory failure with hypoxia; U07.1 COVID-19; J12.82 Pneumonia due to coronavirus disease 2019; N17.9 Acute kidney failure, unspecified; I42.9 Cardiomyopathy, unspecified; G72.81 Critical illness myopathy; Z68.42 Body mass index [BMI] 45.0-49.9, adult; J44.9 Chronic obstructive pulmonary disease, unspecified; I25.10 Atherosclerotic heart disease of native coronary artery without angina pectoris; N18.9 Chronic kidney disease, unspecified; E86.0 Dehydration; R53.81 Other malaise; D64.9 Anemia, unspecified; F41.9 Anxiety disorder, unspecified; E11.22 Type 2 diabetes mellitus with diabetic chronic kidney disease; F03.90 Unspecified dementia, unspecified severity, without behavioral disturbance, psychotic disturbance, mood disturbance, and anxiety; I12.9 Hypertensive chronic kidney disease with stage 1 through stage 4 chronic kidney disease, or unspecified chronic kidney disease; I95.9 Hypotension, unspecified; E78.5 Hyperlipidemia, unspecified; F32.9 Major depressive disorder, single episode, unspecified; I48.91 Unspecified atrial fibrillation; I25.5 Ischemic cardiomyopathy; I25.2 Old myocardial infarction; Z87.891 Personal history of nicotine dependence; Z79.82 Long term (current) use of aspirin; Z79.899 Other long term (current) drug therapy
CPT/HCPCS: 10879